=== PATIENT | female | born 1985 | race Caucasian/White ===

== ENCOUNTER 2016-09-11 13:52 | Emergency (ER) | payer BC ==
--- NOTE | 2016-09-11 15:25 | ER Document Report ---
HPI - HPI Onset: Just prior to arrival Pain Level: Denies Context: 31 yo contact lense wearer female started having frontal headache 2/5 since yesterday, today her vision has been blurry even with contacts in, got worse throughout the day.(When she got up to go back to the eye doctor, she felt foggy. black dots in vision, lights wavy, and those symptoms is reason she came into the ER.- lasted a few minutes) c/o red eyes for 2 weeks without symptoms , seen [facility] 3 times, r/o allergy, bacterial infection, being tx for allergies. Prescription drops. Gastric bypass 9 years ago. No chronic dx. No eye drainage, no fever or chills, no travel outside country, no tick bite, no fatique. The lunch truck driver measured her IOP's & used let lamp each time she was seen there. Not wearing contacts did not change the red eyes. Associated Symptoms: None Exacerbated by: Denies Relieved by: Denies Similar symptoms previously: Yes Recently seen / treated by doctor: Yes - ROS ROS below otherwise negative: Yes Systems Reviewed and Negative: Yes All other systems reviewed and negative - EENT EENT: DENIES: Sore Throat - NEURO Neurology: REPORTS: Headache, Vision blurred, Dizzinesss / Vertigo. DENIES: Weakness Notes: see above, lasted only a few minutes - DERM Skin Color: Normal, [place] Past Medical History - General Information source: Patient - Social History Smoking Status: Never Smoker Frequency of alcohol use: None Drug Abuse: None Lives with: Spouse/Significant other Family History: Reviewed & Not Pertinent Patient has suicidal ideation: No Patient has homicidal ideation: No - Medical History Medical History: Negative Renal/ Medical History: Denies: Hx Peritoneal Dialysis Surgical Hx: Negative Vertical Provider Document - CONSTITUTIONAL Agree With Documented VS: Yes Exam Limitations: No Limitations - INFECTION CONTROL TRAVEL OUTSIDE OF THE [place] IN LAST 30 DAYS: No - HEENT HEENT: Atraumatic, Conjuctival Injection - no fb, when the magnifier used, the scleral blood vessels are causing the "red eyes", bulbar conjunctiva, the palpebral conjunctiva is normal, Normocephalic, PERRLA. negative: Pharyngeal Erythema, Tympanic Membrane Red - NECK Neck: Supple, Thyroid Normal. negative: Lymphadenopathy-Left, Lymphadenopathy- Right - RESPIRATORY Respiratory: Breath Sounds Normal, No Respiratory Distress O2 Sat by Pulse Oximetry: 99 - CARDIOVASCULAR Cardiovascular: Regular Rate, Regular Rhythm - questionable murmur - GI/ABDOMEN Gastrointestinal: Abdomen Soft, Abdomen Non-Tender, No Organomegaly - BACK Back: Normal Inspection. negative: CVA Tenderness-Right, CVA Tenderness-Left - MUSCULOSKELETAL/EXTREMETIES Musculoskeletal/Extremeties: MAEW, FROM, Non-Tender - NEURO Level of Consciousness: Awake, Alert, Appropriate Motor/Sensory: No Motor Deficit, No Sensory Deficit - DERM Integumentary: Warm, Dry, No Rash Course - Re-evaluation Re-evalutation: 09/11/16 15:25 Gait stable from waiting room to room 36 09/11/16 16:[address] Grewal and he recommends a sedimentation rate and CRP 09/11/16 17:13 labwork not suggestive of any diagnosis, I rec. she see an internal medicine doctor for further work up, I also added a Lyme Titer which is a send outl 09/11/16 17:46 esr mildly elevated. crp normal. - Vital Signs Vital signs: Temp Pulse Resp BP Pulse Ox 98.4 F 71 16 118/73 99 09/11/16 14:47 09/11/16 14:47 09/11/16 14:47 09/11/16 14:47 09/11/16 14:47 - Laboratory Result Diagrams: 09/11/16 16:29 09/11/16 16:29 Discharge - Discharge Clinical Impression: Episode of dizziness, Blurred vision, yoselin. bulbar hyperemia Headache Qualifiers: Headache type: unspecified Headache chronicity pattern: unspecified pattern Intractability: not intractable Qualified Code(s): R51 - Headache Instructions: Dizziness ([facility]), Headache ([facility]) Additional Instructions: see [facility] internal medicine doctor for further work up Address: [address] [place] [id number] see the opthamologist recommended for second opinion. to er if any symtpoms worsen copy of labwork given to you continue the eye drops try again not to wear the contacts for a week Please complete the patient satisfaction survey if you get one, and return it.. If you do not receive a survey, then you can go to the [facility] website, [email or web address] and place your comments about your very good care. Thank you very much. It was a pleasure being your medical provider today. Forms: Return to Work Referrals: LÓPEZ MARIA MD [ACTIVE STAFF] - Follow up tomorrow MARKO LEONARD MD [ACTIVE STAFF] - Follow up as needed
[2016-09-11 16:46] LABS: ABSOLUTE EOSINOPHILS # (AUTO) 0.1 10^3/uL (0.0-0.6); ABSOLUTE LYMPHOCYTES (AUTO) 2.1 10^3/uL (0.5-4.7); ABSOLUTE MONOCYTES (AUTO) 0.4 10^3/uL (0.1-1.4); BASOPHILS % (AUTO) 0.5 % (0-2); EOSINOPHILS % (AUTO) 1.9 % (0-6); HEMATOCRIT 34.9 % (36.0-47.0); HEMOGLOBIN 11.3 g/dL (12.0-15.5); LYMPHOCYTES % (AUTO) 31.2 % (13-45); MEAN CORPUSCULAR HEMOGLOBIN 26.2 pg (27.0-33.4); MEAN CORPUSCULAR HGB CONC 32.4 g/dL (32.0-36.0); MEAN CORPUSCULAR VOLUME 81 fl (80-97); MONOCYTES % (AUTO) 5.8 % (3-13); RED BLOOD COUNT 4.31 10^6/uL (3.72-5.28); RED CELL DISTRIBUTION WIDTH 15.8 % (11.5-14.0); SEGMENTED NEUTROPHILS % (AUTO) 60.6 % (42-78); WHITE BLOOD COUNT 6.7 10^3/uL (4.0-10.5)
[2016-09-11 17:01] LABS: ALANINE AMINOTRANSFERASE 19 U/L (9-52); ALBUMIN 4.3 g/dL (3.5-5.0); ALKALINE PHOSPHATASE 58 U/L (38-126); ANION GAP 11 (5-19); ASPARTATE AMINO TRANSFERASE 21 U/L (14-36); BILIRUBIN,DIRECT 0.3 mg/dL (0.0-0.4); BILIRUBIN,TOTAL 0.4 mg/dL (0.2-1.3); BLOOD UREA NITROGEN 11 mg/dL (7-20); CALCIUM 9.6 mg/dL (8.4-10.2); CARBON DIOXIDE 30 mmol/L (22-30); CHLORIDE 102 mmol/L (98-107); CREATININE RESULT 0.65 mg/dL (0.52-1.25); GLUCOSE 105 mg/dL (75-110); POTASSIUM 4.5 mmol/L (3.6-5.0); SODIUM 142.7 mmol/L (137-145); TOTAL PROTEIN 7.7 g/dL (6.3-8.2)
[2016-09-11 17:02] LABS: C-REACTIVE PROTEIN < 5.0 mg/L (<10.0)
[2016-09-11 17:06] LABS: APPEARANCE,URINE CLEAR; BILIRUBIN,URINE NEGATIVE (NEGATIVE); GLUCOSE, URINE NEGATIVE (NEGATIVE); KETONES,URINE NEGATIVE (NEGATIVE); LEUKOCYTE ESTERASE,URINE NEGATIVE (NEGATIVE); NITRITE,URINE NEGATIVE (NEGATIVE); PROTEIN,URINE NEGATIVE (NEGATIVE); URINE SPECIFIC GRAVITY 1.005; UROBILINOGEN,URINE NEGATIVE mg/dL (<2.0)
[2016-09-11 17:28] LABS: ERYTHROCYTE SEDIMENTATION RATE 35 mm/hr (0-20)
[2016-09-11 17:59] VITALS: BP 128/70
[2016-09-14 07:29] LABS: LYME DISEASE IGG AND IGM AB <0.91 ISR (0.00-0.90)
== END 2016-09-11 17:54 | disposition home or self-care (01) ==
LOC: ER 13:52
DX: R42 Dizziness and giddiness (principal); H53.8 Other visual disturbances; H11.433 Conjunctival hyperemia, bilateral; R51 Headache
CPT/HCPCS: 36415; 80053; 81001; 84703; 85025; 85652; 86140; 86617; 86618; 99284

== ENCOUNTER → 2017-08-14 | Outpatient (CLI) | payer BC ==
--- NOTE | 2017-08-14 15:00 | RADIOLOGY REPORT (SQ) ---
EXAM DESCRIPTION: UGI SERIES COMPLETED DATE/TIME: 08/14/2017 9:53 am REASON FOR STUDY: BARIATRIC SURGERY STATUS R10.9 UNSPECIFIED ABDOMINAL PAIN COMPARISON: None. TECHNIQUE: Under fluoroscopic guidance, patient ingested effervescent granules followed by thick and thin barium. Fluoroscopic spot images and routine radiographic images acquired and stored on PACS. 12 MM BARIUM TABLET GIVEN: No. LIMITATIONS: None. FLUOROSCOPY TIME: FLUORO TIME: 0.9 minutes 27 fluoroscopy images saved to PACS. FINDINGS: NEUROMUSCULAR COORDINATION OF SWALLOW: Normal. No aspiration. ESOPHAGEAL MOTILITY: Normal peristalsis. No esophageal spasm. ESOPHAGEAL MUCOSA: Normal mucosa without masses or ulceration. GASTRO-ESOPHAGEAL JUNCTION: No hiatal hernia or reflux. STOMACH: A lap band is noted in good position and working properly. Normal without masses or ulcerat ions. GASTRIC OUTLET: No delay in emptying. Normal pylorus. DUODENAL BULB: Normal distention. No spasm or ulceration. DUODENUM: Mucosa normal. No extrinsic masses or malrotation. PROXIMAL SMALL BOWEL: Mucosa normal. No extrinsic masses or malrotation. NON-GI TRACT STRUCTURES: No significant finding. OTHER: No other significant finding. IMPRESSION: NORMAL DOUBLE CONTRAST BARIUM SWALLOW / UPPER GI SERIES WITH FUNCTIONING LAP BAND ABO VE. COMMENT: Quality ID [id number]: Final reports for procedures using fluoroscopy that document radiation exp osure indices, or exposure time and number of fluorographic images (if radiation exposure indices are not available) TECHNICAL DOCUMENTATION: JOB ID: [id number] [employer]- All Rights Reserved Reading location - IP/workstation name: [facility]
== END ==
LOC: RAD 09:01
PROVIDERS: ATTEND Surgery
DX: Z98.84 Bariatric surgery status (principal)
CPT/HCPCS: 74247